=== PATIENT | male | born 1945 | race Caucasian/White ===

== ENCOUNTER 2019-02-03 14:15 | Emergency (ER) | payer MEDICARE ==
[2019-02-03 14:57] LABS: HEMATOCRIT 38.9 % (42.0-52.0); HEMOGLOBIN 13.8 gm/dl (14.0-18.0); MEAN CELL VOLUME 102.6 fl (81-97); MEAN CORPUSCULAR HEMOGLOBIN 36.4 pg (27-33); MEAN CORPUSCULAR HGB CONC 35.5 g/dl (32-36); MEAN PLATELET VOLUME 9.9 fl (7.4-10.4); PLATELET COUNT 115 K/uL (130-400); RED BLOOD COUNT 3.79 M/uL (4.40-5.70); RED CELL DISTRIBUTION WIDTH 14.9 % (11.5-14.5)
[2019-02-03] MEDS ORDERED: MVI, ADULT NO.4 WITH VIT K 10 ML, THIAMINE HCL IV 100 MG in 0.9 % SODIUM CHLORIDE 1000M... IV SCH ×3 (15:00)
[2019-02-03 15:11] LABS: BLOOD UREA NITROGEN 9 mg/dL (8-23); CREATININE 0.9 mg/dL (0.7-1.2); EST GLOMERULAR FILTRATION RATE > 60 mL/min; TOTAL PROTEIN 7.3 g/dL (6.6-8.7)
[2019-02-03 15:13] LABS: GLUCOSE,RANDOM 134 mg/dL (74-109); INR 1.1; PARTIAL THROMBOPLASTIN TIME 26.2 SECONDS (24.5-39.1); PROTHROMBIN TIME (PATIENT) 11.1 SECONDS (9.5-12.1)
[2019-02-03 15:16] LABS: ALB/GLOB RATIO 1.1 (1.1-1.8); ALBUMIN 3.8 g/dL (4.0-5.0); ALKALINE PHOSPHATASE 84 U/L (40-129); ALT/SGPT 68 U/L (<41); AST/SGOT 121 U/L (10.0-50.0); CREATINE PHOSPHOKINASE 66 U/L (39-308)
[2019-02-03 15:18] LABS: CKMB 2.7 ng/mL (<6.73)
[2019-02-03] MEDS ORDERED: LORAZEPAM 2 MG/ML VIAL IV ONE (16:20)
--- NOTE | 2019-02-03 17:05 | Emergency Department Record ---
History of Present Illness - General Chief complaint: Weakness Stated complaint: LOSS OF BALANCE COUPLE WEEKS Time Seen by Provider: 02/03/19 14:26 Source: Patient, Family Mode of Arrival: Ambulatory Limitations: No limitations - History of Present Illness Initial comments: pt comes in because he has been weak and off balance for 2 wks. he has had a few falls recently mostly because he is so off balance. he drinks a "quart of schnapps" a day. he has had no alcohol for 2 days. pt had a stroke 10 years ago with no residual effects Complaint: Generalized weakness Onset/Timin -: Week(s) Location: Generalized Severity: Moderate Improves with: None Worsens with: None Associated Symptoms: Loss of appetite, Nausea/vomiting - [place] Coma Scale Eye Response: (4) Open spontaneously Motor Response: (6) Obeys commands Verbal Response: (5) Oriented [place] Total: 15 - Symptoms of Stroke Symptoms of stroke: Dizziness, Muscle Weakness, Unable to Walk, Unsteady When Walking - Related Data Home Medications Medication Instructions Recorded Confirmed Last Taken Amlodipine Besylate [Norvasc] 5 mg PO QAM 02/03/19 02/03/19 02/03/19 Aspirin Chewable 81 mg PO QAM 02/03/19 02/03/19 02/03/19 Clonidine HCl 0.1 mg PO BID 02/03/19 02/03/19 02/03/19 Allergies Allergy/AdvReac Type Severity Reaction Status Date / Time No Known Drug Allergies Allergy Verified 02/03/19 14:23 Travel Screening - Travel/Exposure Within Last 30 Days Have you traveled within the last 30 days?: No Review of Systems Reviewed: No additional complaints except as noted below Constitutional: Reports: As per HPI, Weakness. Denies: Chills, Fever, Malaise, Night sweats, Weight change Eyes: Reports: As per HPI. Denies: Eye discharge, Eye pain, Photophobia, Vision change ENT: Reports: As per HPI. Denies: Congestion, Dental pain, Ear pain, Epistaxis , Hearing loss, Throat pain Respiratory: Reports: As per HPI. Denies: Cough, Dyspnea, Hemoptysis, Stridor, Wheezes Cardiovascular: Reports: As per HPI. Denies: Arrhythmia, Chest pain, Dyspnea on exertion, Edema, Murmurs, Orthopnea, Palpitations, Paroxysmal nocturnal dyspnea, Rheumatic Fever, Syncope Endocrine: Reports: As per HPI, Fatigue. Denies: Heat or cold intolerance, Polydipsia, Polyuria Gastrointestinal: Reports: As per HPI. Denies: Abdominal pain, Constipation, Diarrhea, Hematemesis, Hematochezia, Melena, Nausea, Vomiting Genitourinary: Reports: As per HPI. Denies: Dysuria, Frequency, Hematuria, Incontinence, Retention, Testicular pain, Testicular mass, Urgency Musculoskeletal: Reports: As per HPI. Denies: Arthralgia, Back pain, Gout, Joint swelling, Myalgia, Neck pain Skin: Reports: As per HPI. Denies: Bruising, Change in color, Change in hair/ nails, Lesions, Pruritus, Rash Neurological: Reports: As per HPI, Abnormal gait, Weakness. Denies: Confusion, Headache, Numbness, Paresthesias, Seizure, Tingling, Tremors, Vertigo Psychiatric: Reports: As per HPI. Denies: Anxiety, Auditory hallucinations, Depression, Homicidal thoughts, Suicidal thoughts, Visual hallucinations Hematological/Lymphatic: Reports: As per HPI. Denies: Anemia, Blood Clots, Easy bleeding, Easy bruising, Swollen glands Past Medical History - SOCIAL HISTORY Smoking Status: Light tobacco smoker (<10/day) Alcohol Use: Heavy Alcohol Use Comment: 1 quart liquor/day Drug Use: None - RESPIRATORY Hx Respiratory Disorders: No - CARDIOVASCULAR Hx Cardio Disorders: Yes Hx Hypertension: Yes - NEURO Hx Neuro Disorders: Yes Hx CVA: Yes (2005) - GI Hx GI Disorders: No - Hx Genitourinary Disorders: No - ENDOCRINE Hx Endocrine Disorders: No - MUSCULOSKELETAL Hx Musculoskeletal Disorders: No - PSYCH Hx Psych Problems: Yes Hx Anxiety: Yes Hx Depression: Yes - HEMATOLOGY/ONCOLOGY Hx Hematology/Oncology Disorders: No Family Medical History Any Significant Family History?: Yes Hx Cancer: Father Hx HTN: Mother Physical Exam - General General Appearance: Alert, Oriented x3, Cooperative, Mild distress - Head Head exam: Normal inspection - Eye Eye exam: Normal appearance, PERRL, EOMI Pupils: Normal accommodation - ENT ENT exam: Normal exam, Mucous membranes moist, Normal external ear exam, Normal orophraynx Ear exam: Normal external inspection. negative: External canal tenderness Nasal Exam: Normal inspection. negative: Discharge, Sinus tenderness Mouth exam: Normal external inspection, Tongue normal Teeth exam: Normal inspection. negative: Dental caries Throat exam: Normal inspection. negative: Tonsillar erythema, Tonsillar exudate - Neck Neck exam: Normal inspection, Full ROM. negative: Tenderness - Respiratory Respiratory exam: Normal lung sounds bilaterally. negative: Respiratory distress - Cardiovascular Cardiovascular Exam: Regular rate, Normal rhythm, Normal heart sounds - GI/Abdominal GI/Abdominal exam: Soft, Normal bowel sounds. negative: Tenderness - Rectal Rectal exam: Deferred - exam: Deferred - Extremities Extremities exam: Normal inspection, Full ROM, Normal capillary refill. negative: Tenderness - Back Back exam: Reports: Normal inspection, Full ROM. Denies: Muscle spasm, Rash noted, Tenderness - Neurological Neurological exam: Abnormal gait, Alert, CN II-XII intact, Oriented X3, Other ( ataxia, tremors). 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 transfer was d/w pt to a stroke center which he is refusing. he has been warned of the risks including and further disability. he still refuses. Medical Decision Making - Lab Data Result diagrams: 02/03/19 14:35 02/03/19 14:35 Lab Results 02/03/19 02/03/19 02/03/19 Range/Units 14:35 14:35 14:35 WBC 3.0 L (4.2-12.2) K/uL RBC 3.79 L (4.40-5.70) M/uL Hgb 13.8 L (14.0-18.0) gm/dl Hct 38.9 L (42.0-52.0) % MCV 102.6 H (81-97) fl MCH 36.4 H (27-33) pg MCHC 35.5 (32-36) g/dl RDW 14.9 H (11.5-14.5) % Plt Count 115 L (130-400) K/uL MPV 9.9 (7.4-10.4) fl Neutrophils % 62.0 (47-80) % Eosinophils % Not Reportable Basophils % Not Reportable Lymphocytes 23.0 (16-45) % Monocytes 15.0 H (0-9) % PT 11.1 (9.5-12.1) SECONDS INR 1.1 APTT 26.2 (24.5-39.1) SECONDS Sodium 128 L (136-145) mmol/L Potassium 3.6 (3.4-4.5) mmol/L Chloride 86 L (98-107) mmol/L Carbon Dioxide 28.0 (22-29) mmol/L Anion Gap 14.0 (7-16) BUN 9 (8-23) mg/dL Creatinine 0.9 (0.7-1.2) mg/dL Estimated GFR > 60 mL/min Random Glucose 134 H (74-109) mg/dL Calcium 9.1 (8.8-10.2) mg/dL Total Bilirubin 1.30 H (0.2-1.0) mg/dL AST 121 H (10.0-50.0) U/L ALT 68 H (<41) U/L Alkaline Phosphatase 84 (40-129) U/L Creatine Kinase 66 (39-308) U/L CK-MB (CK-2) 2.7 (<6.73) ng/mL Troponin T (0-0.010) ng/mL Total Protein 7.3 (6.6-8.7) g/dL Albumin 3.8 L (4.0-5.0) g/dL Globulin 3.5 (1.4-4.8) gm/dL Albumin/Globulin Ratio 1.1 (1.1-1.8) Ethyl Alcohol (0-0.010) g/dL 02/03/19 02/03/19 Range/Units 14:35 14:35 WBC (4.2-12.2) K/uL RBC (4.40-5.70) M/uL Hgb (14.0-18.0) gm/dl Hct (42.0-52.0) % MCV (81-97) fl MCH (27-33) pg MCHC (32-36) g/dl RDW (11.5-14.5) % Plt Count (130-400) K/uL MPV (7.4-10.4) fl Neutrophils % (47-80) % Eosinophils % Basophils % Lymphocytes (16-45) % Monocytes (0-9) % PT (9.5-12.1) SECONDS INR APTT (24.5-39.1) SECONDS Sodium (136-145) mmol/L Potassium (3.4-4.5) mmol/L Chloride (98-107) mmol/L Carbon Dioxide (22-29) mmol/L Anion Gap (7-16) BUN (8-23) mg/dL Creatinine (0.7-1.2) mg/dL Estimated GFR mL/min Random Glucose (74-109) mg/dL Calcium (8.8-10.2) mg/dL Total Bilirubin (0.2-1.0) mg/dL AST (10.0-50.0) U/L ALT (<41) U/L Alkaline Phosphatase (40-129) U/L Creatine Kinase (39-308) U/L CK-MB (CK-2) (<6.73) ng/mL Troponin T < 0.010 (0-0.010) ng/mL Total Protein (6.6-8.7) g/dL Albumin (4.0-5.0) g/dL Globulin (1.4-4.8) gm/dL Albumin/Globulin Ratio (1.1-1.8) Ethyl Alcohol 0.000 (0-0.010) g/dL Disposition Disposition: Other Clinical Impression: Cerebellar stroke, Alcohol abuse Disposition: Against Medical Advice Condition: (3) Guarded Instructions: Alcohol Dependence (ED), Self Care Measures After a Stroke (ED), Dizziness (ED) Additional Instructions: may return at any time. take an aspirin a day. follow up with family doctor [id number] Quality - Quality Measures Quality Measures: N/A - Blood Pressure Screening Does Patient Have Any of the Following: No Blood Pressure Classification: Pre-Hypertensive BP Reading Systolic Measurement: 139 Diastolic Measurement: 80 Screening for High Blood Pressure: < Pre-Hypertensive BP, F/U Documented > [ [id number]] Pre-Hypertensive Follow-up Interventions: Follow-up with rescreen every year.
[2019-02-03] MEDS ORDERED: ASPIRIN 325 MG TABLET PO ONE (17:06)
--- NOTE | 2019-02-05 20:59 | CT SCAN REPORT ---
EXAM: CT SCAN HEAD WO CONTRAST HISTORY: MEMORY LAPSES. BALANCE PROBLEMS. SHAKY. DECREASED APPETITE FOR 2-3 WEEKS. TECHNIQUE: Routine noncontrast CT of the brain. COMPARISON: CT brain without contrast 06/14/2008. FINDINGS: There is moderate dilatation of the subarachnoid spaces consistent with generalized atrophy. The ventricles are at the upper limits of normal in size. New since the prior examination is an area of CSF-like density within the inferomedial aspect of the right cerebellar hemisphere. There is associated volume loss. This measures 2.4 x 2.7 x 3.4 cm and is consistent with an old infarct. There is a prominence subarachnoid space vs. old cortical infarct redemonstrated in the inferolateral right cerebellar hemisphere, stable. There is a possible small old cortical infarct within the inferior left cerebellar hemisphere vs. prominent perivascular space. This is better visualized than on the prior examination with current imaging technique superior. An old lacunar infarct is again noted near the junction of the anterior aspect of the left lentiform nucleus and the internal/external capsules. An old lacunar infarct is again noted within the right lentiform nucleus. Mild periventricular and subcortical white matter lucencies are scattered in each cerebral hemisphere, progressed in the interval. These are nonspecific but likely areas of chronic small vessel ischemia. No other area of abnormally increased or decreased attenuation is noted throughout the brain substance. No abnormal extraaxial fluid collection is seen. There is atherosclerotic calcification of the distal vertebral arteries and distal internal carotid arteries. Tiny retention cysts are noted within the maxillary sinuses. IMPRESSION: 1. NO CT EVIDENCE OF ACUTE MAJOR VESSEL INFARCT, INTRACRANIAL HEMORRHAGE, NOR MASS. 2. AREA OF ENCEPHALOMALACIA INVOLVING THE INFEROMEDIAL ASPECT OF THE RIGHT CEREBELLAR HEMISPHERE, NEW SINCE 2007, CONSISTENT WITH OLD INFARCT. 3. POSSIBLE TINY OLD CORTICAL INFARCT INVOLVING THE INFERIOR ASPECT OF THE LEFT CEREBELLAR HEMISPHERE, NOT PREVIOUSLY DEMONSTRATED. 4. OLD LACUNAR INFARCTS REDEMONSTRATED WITHIN THE LENTIFORM NUCLEI, STABLE. 5. MILD WHITE MATTER LUCENCIES IN EACH CEREBRAL HEMISPHERE ARE MILDLY PROGRESSED SINCE 2007. THESE ARE CONSISTENT WITH CHRONIC SMALL VESSEL ISCHEMIA. 6. TINY RETENTION CYSTS WITHIN THE MAXILLARY SINUSES. NOT MENTIONED ABOVE IS A SMALL AMOUNT OF INFLAMMATORY FLUID IN THE RIGHT SPHENOID SINUS. JOB NUMBER: [id number] MTDD
== END 2019-02-03 17:35 | disposition left against medical advice (07) ==
LOC: ER 14:15
DX: G46.4 Cerebellar stroke syndrome (principal); R26.0 Ataxic gait; R11.2 Nausea with vomiting, unspecified; R42 Dizziness and giddiness; I10 Essential (primary) hypertension; F10.20 Alcohol dependence, uncomplicated; F17.210 Nicotine dependence, cigarettes, uncomplicated; Z86.73 Personal history of transient ischemic attack (TIA), and cerebral infarction without residual deficits
CPT/HCPCS: 70450; 80053; 80320; 82550; 82553; 84484; 85027; 85610; 85730; 93005; 93010; 96365; 96366; 96375; 99284; J3411; J7030